=== PATIENT | female | born 1975 | race Caucasian/White ===

== ENCOUNTER 2019-04-16 22:09 | Emergency (ER) | payer SELFPAY ==
[2019-04-16 22:20] VITALS: BP 129/81; PULSE 81; TEMP 98.1; BMI 22.1
[2019-04-16] MEDS ORDERED: ACETAMINOPHEN 500 MG TABLET (FP) PO ONE (22:51)
[2019-04-16] MEDS ORDERED: ACETAMINOPHEN 325 MG TABLET (FP) ONE (22:53)
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
== END 2019-04-16 23:31 | disposition home or self-care (01) ==
LOC: JER 22:09
DX: S13.4XXA Sprain of ligaments of cervical spine, initial encounter (principal); V43.62XA Car passenger injured in collision with other type car in traffic accident, initial encounter; Y92.414 Local residential or business street as the place of occurrence of the external cause; Y93.89 Activity, other specified; Y99.8 Other external cause status
CPT/HCPCS: 99283-25